=== PATIENT | female | born 1985 | race Caucasian/White ===

== ENCOUNTER 2016-09-14 21:40 | Emergency (ER) | payer OTHER ==
[~2016-09-14] VITALS: Ht 172.7 cm; Wt 157.7 kg
[2016-09-14 21:46] VITALS: TEMP 36.7; Ht 172.7 cm; Wt 157.7 kg
[2016-09-14] MEDS ORDERED: SODIUM CHLORIDE 0.9% 1000ML 1,000 ML IV STA (22:00)
[2016-09-14] MEDS ORDERED: VNTHFA/IN INH (22:03)
[2016-09-14 22:12] LABS: URINE APPEARANCE CLOUDY (CLEAR); URINE COLOR DK YELLOW; URINE EPITHELIAL CELL AUTO >30 /lpf (0-5); URINE NITRITE NEG (NEG); URINE PH 5.5 (4.5-7.5); URINE SPECIFIC GRAVITY 1.029 (1.000-1.030); UROBILINOGEN NEG (NEG); ZZUR CULT IF INDIC CLEAN CATCH YES
[2016-09-14 22:14] LABS: MANUAL MICROSCOPIC REQUIRED? NO; REVIEW REQ? YES
[2016-09-14 22:16] LABS: URINE BILIRUBIN NEG (NEG)
[2016-09-14 22:28] LABS: BASO % 0.1 %; BASO ABS # 0.02 K/uL (0-0.2); COMPLETE YES; EOS % 1.2 %; HEMATOCRIT 42.3 % (37-47); IG% 0.3 %; LYMPH % 26.5 %; LYMPH ABS # 3.61 K/uL (1.2-3.4); MEAN CELL VOLUME 86.9 fL (80-100); MEAN CORPUSCULAR HEMOGLOBIN 29.4 pg (25-34); MEAN CORPUSCULAR HGB CONC 33.8 g/dl (32-36); MEAN PLATELET VOLUME 9.7 fL (7.4-10.4); MONO % 4.6 %; NEUT % 67.3 %; PLATELET COUNT 222 K/uL (130-400); RED BLOOD COUNT 4.87 M/uL (4.2-5.4)
--- NOTE | 2016-09-14 22:46 | EMERGENCY ROOM VISIT NOTE ---
History First contact with patient: 21:49 Chief Complaint: ABDOMINAL PAIN Stated Complaint: STOMACH PAIN Nursing Triage Summary: pt c/o abd pain x 4 days. reports + preg test at home History of Present Illness The patient is a 31 year old female who presents to the Emergency Room with complaints of abdominal pain. The patient states that for the past 4 days, she has had pain throughout her abdomen with radiation up to the ribs. She took a home test and states it was positive. She reports that her last menstrual period was at the end of June. She states the pain as a tearing sensation and is intermittent. She rates the discomfort an 8/10 and states the pain is worse with eating. She reports it is also worse in the morning. She has associated nausea and has had a few episodes of vomiting. The patient states she has had 2 prior pregnancies without complications. She denies any urinary symptoms, vaginal bleeding, vaginal discharge, chest pain, shortness of breath or changes in bowel movements. Review of Systems A complete 10 point review of systems was reviewed with the patient with pertinent positives and negatives as per history of present illness. All else were negative. Social History Smoking Status: Current Every Day Smoker Current/Historical Medications Scheduled PRN Albuterol Hfa (Ventolin Hfa), 2-4 PUFFS INH Q6H PRN for Shortness of Breath Allergies Coded Allergies: Aspirin (Verified Allergy, Severe, "TIGHTENS CHEST"-ASTHMA ATTACK, 09/14/16 ) Physical Exam Vital Signs Date Time Temp Pulse Resp B/P (MAP) Pulse Ox O2 Delivery O2 Flow Rate FiO2 09/15/16 00:10 87 18 111/57 99 Room Air 09/14/16 23:06 95 18 106/77 99 Room Air 09/14/16 22:59 99 16 89/51 97 Room Air 09/14/16 21:46 36.7 100 18 136/89 97 Room Air Physical Exam VITALS: Vitals are noted on the nurse's note and reviewed by myself. Vital signs stable. GENERAL: This is a 31-year-old female, in no acute distress, nondiaphoretic, well-developed well-nourished. SKIN: Capillary reflex less than 2 seconds. HEENT: Normocephalic. PERRLA. EOMI. Mucous membranes moist. HEART: Regular rate and rhythm without murmurs gallops or rubs. LUNGS: Clear to auscultation bilaterally without wheezes, rales or rhonchi. ABDOMEN: Positive bowel sounds x 4. Soft, mild tenderness to palpation across the lower abdomen. No guarding or rebound tenderness. NEURO: Patient was alert and oriented to person place and time. Medical Decision & Procedures ER Provider Diagnostic Interpretation: US OB/ENDOVA mm cystic uterine lesion could reflect a very early gestational sac. Without visualizing a yolk sac or pole, cannot fully exclude ectopic . Recommend clinical follow-up. Unremarkable adnexal contents. Radiologist: Bhanu De Jesus M.D. Laboratory Results 09/14/16 22:15 Red Blood Count 4.87, Mean Corpuscular Volume 86.9, Mean Corpuscular Hemoglobin 29.4, Mean Corpuscular Hemoglobin Concent 33.8, Mean Platelet Volume 9.7, Neutrophils (%) (Auto) 67.3, Lymphocytes (%) (Auto) 26.5, Monocytes (%) (Auto) 4.6, Eosinophils (%) (Auto) 1.2, Basophils (%) (Auto) 0.1, Neutrophils # (Auto) 9.15, Lymphocytes # (Auto) 3.61, Monocytes # (Auto) 0.62, Eosinophils # (Auto) 0.16, Basophils # (Auto) 0.02 09/14/16 22:15 Test 09/14/16 21:55 09/14/16 22:15 Urine Color DK YELLOW Urine Appearance CLOUDY (CLEAR) Urine pH 5.5 (4.5-7.5) Urine Specific [place] 1.029 (1.000-1.030) Urine Protein NEG (NEG) Urine Glucose (UA) NEG (NEG) Urine Ketones TRACE (NEG) Urine Occult Blood NEG (NEG) Urine Nitrite NEG (NEG) Urine Bilirubin NEG (NEG) Urine Urobilinogen NEG (NEG) Urine Leukocyte Esterase SMALL (NEG) Urine WBC (Auto) >30 /hpf (0-5) Urine RBC (Auto) 5-10 /hpf (0-4) Urine Hyaline Casts (Auto) 0 /lpf (0-5) Urine Epithelial Cells (Auto) >30 /lpf (0-5) Urine Bacteria (Auto) 2+ (NEG) Urine Pathogenic Casts /lpf (0) White Blood Count 13.60 K/uL (4.8-10.8) Red Blood Count 4.87 M/uL (4.2-5.4) Hemoglobin 14.3 g/dL (12.0-16.0) Hematocrit 42.3 % (37-47) Mean Corpuscular Volume 86.9 fL (80-100) Mean Corpuscular Hemoglobin 29.4 pg (25-34) Mean Corpuscular Hemoglobin Concent 33.8 g/dl (32-36) Platelet Count 222 K/uL (130-400) Mean Platelet Volume 9.7 fL (7.4-10.4) Neutrophils (%) (Auto) 67.3 % Lymphocytes (%) (Auto) 26.5 % Monocytes (%) (Auto) 4.6 % Eosinophils (%) (Auto) 1.2 % Basophils (%) (Auto) 0.1 % Neutrophils # (Auto) 9.15 K/uL (1.4-6.5) Lymphocytes # (Auto) 3.61 K/uL (1.2-3.4) Monocytes # (Auto) 0.62 K/uL (0.11-0.59) Eosinophils # (Auto) 0.16 K/uL (0-0.5) Basophils # (Auto) 0.02 K/uL (0-0.2) RDW Standard Deviation 41.3 fL (36.4-46.3) RDW Coefficient of Variation 13.0 % (11.5-14.5) Immature Granulocyte % (Auto) 0.3 % Immature Granulocyte # (Auto) 0.04 K/uL (0.00-0.02) Anion Gap 8.0 mmol/L (3-11) Est Creatinine Clear Calc Drug Dose 178.0 ml/min Estimated GFR () 126.0 Estimated GFR (Non- 108.7 BUN/Creatinine Ratio 13.3 (10-20) Calcium Level 8.9 mg/dl (8.5-10.1) Total Bilirubin 0.5 mg/dl (0.2-1) Aspartate Amino Transf (AST/SGOT) 21 U/L (15-37) Alanine Aminotransferase (ALT/SGPT) 32 U/L (12-78) Alkaline Phosphatase 73 U/L (45-117) Total Protein 7.1 gm/dl (6.4-8.2) Albumin 3.3 gm/dl (3.4-5.0) Globulin 3.8 gm/dl (2.5-4.0) Albumin/Globulin Ratio 0.9 (0.9-2) Lipase 155 U/L (73-393) Human Chorionic Gonadotropin, Quant 1249 mIU/mL Medications Administered Medications (Trade) Dose Ordered Sig/Shonda Route Start Time Stop Time Status Last Admin Dose Admin Sodium Chloride 1,000 ml @ 999 mls/hr Q1H1M STAT IV 09/14/16 22:00 09/14/16 23:00 DC 09/14/16 22:15 999 MLS/HR Medical Decision Differential diagnosis includes intrauterine , spontaneous , ectopic , ovarian cyst, ovarian torsion, urinary tract infection, among others. The patient is a 31-year-old female who presents today complaining of lower abdominal pain in the setting of a positive home test. Labs revealed a leukocytosis most likely due to . Urinalysis was suggestive of contamination vs infection and will be sent for culture. Beta hCG was found to be 1249. ultrasound showed what may be an early gestational sac, however ectopic could not be excluded. This may represent a very early and ectopic or spontaneous . The patient has no significant tenderness on exam. I am not highly suspicious of ectopic . However, the patient will need 48-hour follow- up for repeat beta hCG and possibly an additional ultrasound. She may follow- up with her primary care provider or DIRECTOR OF CRITICAL CARE for this, or may return here if they are unable to see her. She was instructed to return sooner if she has worsening pain or any other new/concerning symptoms. The patient's case was reviewed with Dr. Wilhelm, ED attending physician, who agreed with my assessment and treatment plan. Based on the patient's presentation and work up, I feel the patient is stable for outpatient treatment. The patient was educated to return to the emergency department for any worsening of their current condition or new/concerning symptoms. She will follow up with in 48 hours for repeat testing. Medication reconciliation: I attest that I have personally reviewed the patient 's current medication list. Blood pressure screening: Patient was found to have normal blood pressure on screening and does not require follow-up. Impression Primary Impression: Abdominal pain during in first trimester Departure Information Dispostion Home / Self-Care Condition GOOD Referrals No Doctor, Assigned (PCP) Patient Instructions My [facility] Additional Instructions Tylenol as needed for pain. You should start taking a vitamin. You need a follow-up in about 48 hours for a repeat hormone level and possibly an ultrasound. You may go to your primary care provider or DIRECTOR OF CRITICAL CARE for this. If you're not able to see them, you may return here for testing. Return to the emergency department sooner for worsening pain, vomiting, fever, or any other new/concerning symptoms.
[2016-09-14 22:52] LABS: BUN/CREATININE RATIO 13.3 (10-20); CALCIUM 8.9 mg/dl (8.5-10.1); CREATININE 0.74 mg/dl (0.60-1.20); POTASSIUM 3.3 mmol/L (3.5-5.1)
[2016-09-14 22:54] LABS: ALB/GLOB RATIO 0.9 (0.9-2)
[2016-09-15 00:10] VITALS: BP 111/57; PULSE 87; O2SAT 99
--- NOTE | 2016-09-15 05:57 | DIAGNOSTIC IMAGING REPORT ---
Limited ultrasound LIMITED (US) CLINICAL HISTORY: positive test, lower abd pain pain TECHNIQUE: Ultrasound COMPARISON STUDY: None FINDINGS: 5 mm cystic central uterine process. Possibility of an early intrauterine gestational sac is not excluded. The ovaries do not appear to be enlarged. Vascular flow is confirmed. IMPRESSION: 5 mm nonspecific cystic process central uterine canal. No evidence for pole. Diagnostic considerations include early intrauterine , versus nonvisualized ectopic . Close clinical and laboratory follow-up is suggested. Repeat ultrasound is suggested to confirm or exclude viability. Electronically signed by: Joseph Boggs M.D. 09/15/2016 5:56 AM Dictated Date/Time: 09/15/2016 5:54 AM
== END 2016-09-15 00:34 | disposition home or self-care (01) ==
LOC: C.EDB 21:43 → C.EDC 09-15 00:34
DX: O99.89 Other specified diseases and conditions complicating pregnancy, childbirth and the puerperium (principal); O99.330 Smoking (tobacco) complicating pregnancy, unspecified trimester; F17.200 Nicotine dependence, unspecified, uncomplicated

== ENCOUNTER 2016-09-30 22:02 | Emergency (ER) | payer OTHER ==
[~2016-09-30] VITALS: Ht 172.7 cm; Wt 155.6 kg
[~2016-09-30 22:02] MED LIST: VNTHFA/IN INH
[2016-09-30 22:10] VITALS: TEMP 36.7; Ht 172.7 cm; Wt 155.6 kg
[2016-09-30 23:34] LABS: BASO % 0.1 %; BASO ABS # 0.02 K/uL (0-0.2); COMPLETE YES; EOS % 0.5 %; HEMATOCRIT 40.6 % (37-47); IG% 0.2 %; LYMPH % 21.5 %; LYMPH ABS # 3.23 K/uL (1.2-3.4); MEAN CORPUSCULAR HEMOGLOBIN 29.4 pg (25-34); MEAN CORPUSCULAR HGB CONC 34.2 g/dl (32-36); MEAN PLATELET VOLUME 9.7 fL (7.4-10.4); MONO % 3.3 %; NEUT % 74.4 %; PLATELET COUNT 257 K/uL (130-400); RED BLOOD COUNT 4.72 M/uL (4.2-5.4); WHITE BLOOD COUNT 15.02 K/uL (4.8-10.8)
[2016-09-30 23:44] LABS: BUN/CREATININE RATIO 12.8 (10-20); CALCIUM 8.8 mg/dl (8.5-10.1); CREATININE 0.67 mg/dl (0.60-1.20); POTASSIUM 3.7 mmol/L (3.5-5.1)
[2016-09-30] MEDS ORDERED: ACETAMINOPHEN 325 MG TAB PO STA (23:55)
[2016-09-30 23:59] LABS: URINE APPEARANCE CLOUDY (CLEAR); URINE BILIRUBIN NEG (NEG); URINE COLOR DK YELLOW; URINE EPITHELIAL CELL AUTO >30 /lpf (0-5); URINE NITRITE NEG (NEG); UROBILINOGEN NEG (NEG); ZZUR CULT IF INDIC CLEAN CATCH YES
[2016-10-01 00:06] LABS: MANUAL MICROSCOPIC REQUIRED? NO; REVIEW REQ? YES
[2016-10-01] MEDS ORDERED: CEPHALEXIN MONOHYDRATE 250 MG CAP PO ONE (02:15)
[2016-10-01] MEDS ORDERED: CEPH500C PO (02:19)
[2016-10-01 02:29] VITALS: BP 98/56; PULSE 78; O2SAT 99
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
== END 2016-10-01 02:30 | disposition home or self-care (01) ==
LOC: C.EDB 22:04 → C.EDC 10-01 02:30
DX: S39.81XA Other specified injuries of abdomen, initial encounter (principal); O9A.211 Injury, poisoning and certain other consequences of external causes complicating pregnancy, first trimester; Y04.2XXA Assault by strike against or bumped into by another person, initial encounter; Y92.89 Other specified places as the place of occurrence of the external cause; O23.91 Unspecified genitourinary tract infection in pregnancy, first trimester; Z3A.01 Less than 8 weeks gestation of pregnancy

== ENCOUNTER 2017-01-15 09:37 | Emergency (ER) | payer OTHER ==
[~2017-01-15] VITALS: Ht 172.7 cm; Wt 160.3 kg
[2017-01-15 09:41] VITALS: TEMP 36.4; Ht 172.7 cm; Wt 160.3 kg
[2017-01-15] MEDS ORDERED: PROMETHAZINE HCL INJ 25 MG/ML 1 ML VIAL IV STA (09:51)
[2017-01-15] MEDS ORDERED: SODIUM CHLORIDE 0.9% 1000ML 2,000 ML IV STA (09:51)
--- NOTE | 2017-01-15 09:55 | EMERGENCY ROOM VISIT NOTE ---
History Report prepared by Bharat: Joanie Dominguez Under the Supervision of: Dr. Darian Lopez M.D. First contact with patient: 09:45 Chief Complaint: GI ASSESSMENT Stated Complaint: LOWER RIGHT FRONT AND BACK PAIN /VOMITING Nursing Triage Summary: Pt states she has been vomiting with right sided abd pain and back pain. Started Saturday. Seen at [facility] yesterday. History of Present Illness The patient is a 31 year old female who presents to the Emergency Room with complaints of waxing and waning right sided abdominal pain that began five days ago. She currently rates her discomfort as an 8/10 in severity. The patient states that on Saturday she ate and states that she developed right sided back pain that radiated into her right abdomen and nausea. She states that she then began vomiting and experiencing diarrhea. The patient states that she had to leave work due to her symptoms. She states that she attributed her symptoms to food poisoning. The patient states that her symptoms her persisted all weekend. She states that she is nauseous constantly. The patient states that she vomits or has diarrhea each time she eats or drinks. She states that her pain is worsened with eating and drinking. The patient denies any history of a cholecystectomy or appendectomy, noting that her only abdominal surgery was previous sections. She denies ever having pain like this in the past. The patient states that she feels feverish, but is chilled. She denies any recent sick contacts. The patient denies any hematemesis, hematochezia, or urinary symptoms. Source of History: patient Onset: five days ago Position: abdomen (right sided) Symptom Intensity: 8/10 Timing: waxes/wanes Modifying Factors (Worsening): eating, drinking Associated Symptoms: + fevers, + chills, + nausea, + vomiting, + diarrhea, No hematochezia, No urinary symptoms Review of Systems See HPI for pertinent positives & negatives. A total of 10 systems reviewed and were otherwise negative. Past Medical & Surgical Medical Problems: (1) Family History Patient reports no known family medical history. Social History Smoking Status: Current Every Day Smoker Alcohol Use: none Drug Use: none Marital Status: in relationship Housing Status: lives with family Current/Historical Medications Scheduled Ondasetron Odt (Zofran Odt), 4 MG SL Q6H Pantoprazole (Protonix), 20 MG PO DAILY Scheduled PRN Albuterol Hfa (Ventolin Hfa), 2-4 PUFFS INH Q6H PRN for Shortness of Breath Oxycodone Ir (Roxicodone Ir), 1 TAB PO Q4H PRN for Pain Allergies Coded Allergies: Aspirin (Verified Allergy, Severe, "TIGHTENS CHEST"-ASTHMA ATTACK, ) Physical Exam Vital Signs Date Time Temp Pulse Resp B/P (MAP) Pulse Ox O2 Delivery O2 Flow Rate FiO2 01/15/17 12:37 82 18 123/64 97 01/15/17 11:18 80 18 101/56 98 Room Air 01/15/17 09:41 36.4 112 20 107/73 97 Room Air Physical Exam GENERAL: Patient is in no acute distress. HEENT: No acute trauma, normocephalic atraumatic, mucous membranes moist, no nasal congestion, no scleral icterus. NECK: No stridor, no adenopathy, no meningismus, trachea is midline. LUNGS: Clear to auscultation bilaterally, no wheeze, no rhonchi, breath sounds equal. HEART: Tachycardic with a regular rhythm, no murmurs. ABDOMEN: Soft, tender along entire right side, bowel sounds positive, no hernias , no peritonitis. BACK: Right flank discomfort with percussion EXTREMITIES: No cyanosis or edema, full range of motion of all the joints without pain or difficulty, no signs for acute trauma. NEUROLOGIC: Oriented x 3, no acute motor or sensory deficits, no focal weakness. SKIN: No rash, no jaundice, no diaphoresis. Medical Decision & Procedures ER Provider Diagnostic Interpretation: CT results as stated below per my review and radiologist interpretation: CT SCAN OF THE ABDOMEN AND PELVIS WITH IV CONTRAST CLINICAL HISTORY: Vomiting. Right-sided abdominal pain. COMPARISON STUDY: No priors. TECHNIQUE: Following the IV administration of 93 cc of Optiray 320, CT scan of the abdomen and pelvis is performed from the lung bases to the proximal femora. Images are reviewed in the axial, sagittal, and coronal planes. IV contrast was administered without complication. A dose lowering technique was utilized adhering to the principles of ALARA. The examination is degraded by large body habitus, and by streak artifact from the body wall abutting the CT gantry. CT DOSE: 1098.14 mGycm FINDINGS: Lung bases: The heart is normal in size and without pericardial effusion. Is a 3 mm pleural-based nodule at the left lung base seen on image #7 and a 4 mm pleural-based nodule at the right lung base seen on image #3. These are of doubtful significance in this age group. The lung bases are clear. Liver: The contrast-enhanced liver is enlarged, measuring 22.2 cm in length. The liver demonstrates diffusely diminished attenuation consistent with severe hepatic steatosis. There is no intrahepatic biliary ductal dilatation. The hepatic veins and portal veins are patent. Gallbladder: Unremarkable. Spleen: Spleen is enlarged, measuring 14 cm in length. Pancreas: Unremarkable. Adrenal glands: Unremarkable. Kidneys: The contrast enhanced kidneys are normal in size and without hydronephrosis. The kidneys enhance symmetrically. Abdominal vasculature: The abdominal aorta is normal in course and caliber. Bowel: The small bowel and colon are normal in course and caliber. The appendix is well-visualized and normal. Peritoneum: There is no intraperitoneal free air or abdominal ascites. There is a fat-containing umbilical hernia. Lymphadenopathy: None. Pelvic viscera: The bladder and uterus are normal as visualized. A 2.9 cm dominant follicle is noted in the right ovary. Skeletal structures: No lytic or blastic lesions are seen. Sclerotic change is noted in the sacroiliac joints. IMPRESSION: 1. There are no acute infectious or inflammatory findings in the abdomen or pelvis. 2. Hepatomegaly and severe hepatic steatosis. 3. Splenomegaly. Electronically signed by: Darian Rivero M.D. 01/15/2017 11:22 AM Dictated Date/Time: 01/15/2017 11:18 AM Laboratory Results 01/15/17 09:52 Red Blood Count 5.34, Mean Corpuscular Volume 86.9, Mean Corpuscular Hemoglobin 28.1, Mean Corpuscular Hemoglobin Concent 32.3, Mean Platelet Volume 10.4, Neutrophils (%) (Auto) 71.1, Lymphocytes (%) (Auto) 23.3, Monocytes (%) (Auto) 3.5, Eosinophils (%) (Auto) 1.5, Basophils (%) (Auto) 0.2, Neutrophils # (Auto) 8.06, Lymphocytes # (Auto) 2.64, Monocytes # (Auto) 0.40, Eosinophils # (Auto) 0.17, Basophils # (Auto) 0.02 10/17/17 09:52 Test 01/15/17 09:52 01/15/17 10:50 White Blood Count 11.33 K/uL (4.8-10.8) Red Blood Count 5.34 M/uL (4.2-5.4) Hemoglobin 15.0 g/dL (12.0-16.0) Hematocrit 46.4 % (37-47) Mean Corpuscular Volume 86.9 fL (80-100) Mean Corpuscular Hemoglobin 28.1 pg (25-34) Mean Corpuscular Hemoglobin Concent 32.3 g/dl (32-36) Platelet Count 232 K/uL (130-400) Mean Platelet Volume 10.4 fL (7.4-10.4) Neutrophils (%) (Auto) 71.1 % Lymphocytes (%) (Auto) 23.3 % Monocytes (%) (Auto) 3.5 % Eosinophils (%) (Auto) 1.5 % Basophils (%) (Auto) 0.2 % Neutrophils # (Auto) 8.06 K/uL (1.4-6.5) Lymphocytes # (Auto) 2.64 K/uL (1.2-3.4) Monocytes # (Auto) 0.40 K/uL (0.11-0.59) Eosinophils # (Auto) 0.17 K/uL (0-0.5) Basophils # (Auto) 0.02 K/uL (0-0.2) RDW Standard Deviation 40.7 fL (36.4-46.3) RDW Coefficient of Variation 12.7 % (11.5-14.5) Immature Granulocyte % (Auto) 0.4 % Immature Granulocyte # (Auto) 0.04 K/uL (0.00-0.02) Anion Gap 6.0 mmol/L (3-11) Est Creatinine Clear Calc Drug Dose 168.4 ml/min Estimated GFR () 116.4 Estimated GFR (Non- 100.5 BUN/Creatinine Ratio 14.4 (10-20) Calcium Level 9.1 mg/dl (8.5-10.1) Total Bilirubin 0.6 mg/dl (0.2-1) Aspartate Amino Transf (AST/SGOT) 20 U/L (15-37) Alanine Aminotransferase (ALT/SGPT) 27 U/L (12-78) Alkaline Phosphatase 102 U/L (45-117) Total Protein 8.0 gm/dl (6.4-8.2) Albumin 3.4 gm/dl (3.4-5.0) Globulin 4.6 gm/dl (2.5-4.0) Albumin/Globulin Ratio 0.7 (0.9-2) Lipase 154 U/L (73-393) Human Chorionic Gonadotropin, Qual NEG (NEG) Urine Color YELLOW Urine Appearance CLOUDY (CLEAR) Urine pH 8.0 (4.5-7.5) Urine Specific Ledbetter 1.024 (1.000-1.030) Urine Protein NEG (NEG) Urine Glucose (UA) NEG (NEG) Urine Ketones NEG (NEG) Urine Occult Blood NEG (NEG) Urine Nitrite NEG (NEG) Urine Bilirubin NEG (NEG) Urine Urobilinogen NEG (NEG) Urine Leukocyte Esterase SMALL (NEG) Urine WBC (Auto) 5-10 /hpf (0-5) Urine RBC (Auto) 5-10 /hpf (0-4) Urine Hyaline Casts (Auto) 1-5 /lpf (0-5) Urine Epithelial Cells (Auto) >30 /lpf (0-5) Urine Bacteria (Auto) 2+ (NEG) Laboratory results reviewed by me. Medications Administered Medications (Trade) Dose Ordered Sig/Shonda Route Start Time Stop Time Status Last Admin Dose Admin Sodium Chloride 2,000 ml @ 999 mls/hr Q2H1M STAT IV 01/15/17 09:51 01/15/17 11:51 DC 01/15/17 10:04 999 MLS/HR Promethazine HCl (Phenergan Inj) 12.5 mg NOW STAT IV 01/15/17 09:51 01/15/17 09:52 DC 01/15/17 10:05 12.5 MG Morphine Sulfate (MoRPHine SULFATE INJ) 4 mg Q30M PRN IV 01/15/17 10:00 01/29/17 09:59 01/15/17 10:05 4 MG Morphine Sulfate (MoRPHine SULFATE INJ) 4 mg NOW STAT IV 01/15/17 11:19 01/15/17 11:20 DC 01/15/17 11:36 4 MG Sodium Chloride 500 ml @ 999 mls/hr Q31M STAT IV 01/15/17 11:20 01/15/17 11:50 DC 01/15/17 11:36 999 MLS/HR Ranitidine HCl (zANTac IV) 50 mg NOW STAT IV 01/15/17 11:25 01/15/17 11:26 DC 01/15/17 11:36 50 MG Pantoprazole Sodium (Protonix Tab) 40 mg NOW STAT PO 01/15/17 11:25 01/15/17 11:26 DC 01/15/17 11:37 40 MG ED Course 0946: The patient was evaluated in room A3. A complete history and physical exam was performed. 0951: Ordered Phenergan Inj 12.5 mg IV, Sodium Chloride 2000 ml @ 999 mls/hr IV. 1000: Ordered Morphine Sulfate 4 mg IV. 1119: Ordered Morphine Sulfate 4 mg IV, Sodium Chloride 500 ml @ 999 mls/hr IV. 1125: Ordered Protonix Tab 40 mg PO, Zantac IV 50 mg IV. 1215: I reevaluated the patient and she is resting comfortably. I discussed the exam findings with her and I discussed the treatment plan. She verbalized complete understanding and agreement. She is ready to go home. Medical Decision The patient is a 31 year old female who presents to the ED with complaints of abdominal pain. Differential diagnoses considered include Appendicitis, diverticulitis, biliary colic, acute cholecystitis, pancreatitis, UTI, pyelonephritis, food borne illness, viral illness. There is a mild leukocytosis which could be consistent with infection or just her pain and vomiting. No concerning anemia. No significant electrolyte abnormality, kidney failure or hepatitis. There is no pancreatitis. Urinalysis shows contamination, no infection. Abdominal and pelvis CT shows a fatty liver, no acute infectious process, no evidence for any acute surgical process, no bowel obstruction. The patient presents with several days of symptoms. Her illness may be viral, this could be food borne. She did receive IV morphine, IV Phenergan and IV saline. She was given IV Zantac and oral Protonix. The patient is being discharged on Protonix, a few oxycodone for severe pain, Zofran for nausea, a bland diet and some rest. If things are worsening or not improving, she will return for reassessment. The true cause for her presentation is still unclear. [place] Drug Monitoring Program Search Results: patient reviewed within database, no issues identified Medication Reconcilliation Current Medication List: was personally reviewed by me Impression Primary Impression: Nausea vomiting and diarrhea Additional Impression: Right sided abdominal pain Scribe Attestation The scribe's documentation has been prepared under my direction and personally reviewed by me in its entirety. I confirm that the note above accurately reflects all work, treatment, procedures, and medical decision making performed by me. Departure Information Dispostion Home / Self-Care Prescriptions Pantoprazole (Protonix) 20 Mg Tab 20 MG PO DAILY, #30 TAB Prov: Darian Lopez M.D. 01/15/17 Oxycodone Ir (Roxicodone Ir) 5 Mg Tab 1 TAB PO Q4H Y for Pain, #6 TAB Prov: Darian Lopez M.D. 01/15/17 Ondasetron Odt (ZOFRAN ODT) 4 Mg Tab 4 MG SL Q6H for Nausea, #10 TAB Prov: Darian Lopez M.D. 01/15/17 Referrals No Doctor, Assigned (PCP) Forms HOME CARE DOCUMENTATION FORM, IMPORTANT VISIT INFORMATION, Work Instructions Patient Instructions My [facility] Additional Instructions protonix as directed zofran 1 tab every 6 hours for nausea tylenol for pain oxy ir 1 tab as needed for severe pain rest bland diet---crackers, soup, toast, gatorade return if worsening or have fever or if not improving Problem Qualifiers
[2017-01-15] MEDS ORDERED: MoRPHine SULFATE 4 MG/ML 1 ML CARP\\VIAL IV PRN (10:00)
[2017-01-15] MEDS ORDERED: OPTIRAY 320 IV PRN (10:00)
[2017-01-15 10:17] LABS: BASO % 0.2 %; BASO ABS # 0.02 K/uL (0-0.2); COMPLETE YES; EOS % 1.5 %; HEMATOCRIT 46.4 % (37-47); IG% 0.4 %; LYMPH % 23.3 %; LYMPH ABS # 2.64 K/uL (1.2-3.4); MEAN CELL VOLUME 86.9 fL (80-100); MEAN CORPUSCULAR HEMOGLOBIN 28.1 pg (25-34); MEAN CORPUSCULAR HGB CONC 32.3 g/dl (32-36); MEAN PLATELET VOLUME 10.4 fL (7.4-10.4); MONO % 3.5 %; NEUT % 71.1 %; PLATELET COUNT 232 K/uL (130-400); RED BLOOD COUNT 5.34 M/uL (4.2-5.4); WHITE BLOOD COUNT 11.33 K/uL (4.8-10.8)
[2017-01-15 10:36] LABS: BUN/CREATININE RATIO 14.4 (10-20); CALCIUM 9.1 mg/dl (8.5-10.1); CREATININE 0.79 mg/dl (0.60-1.20); POTASSIUM 3.7 mmol/L (3.5-5.1)
[2017-01-15 10:38] LABS: ALB/GLOB RATIO 0.7 (0.9-2)
[2017-01-15 10:45] LABS: PREG INTERNAL NEGATIVE QC NEG CLEAR BACKGROUND; PREG INTERNAL POSITIVE QC POS CONTROL LINE
[2017-01-15 11:10] LABS: URINE APPEARANCE CLOUDY (CLEAR); URINE BILIRUBIN NEG (NEG); URINE COLOR YELLOW; URINE EPITHELIAL CELL AUTO >30 /lpf (0-5); URINE NITRITE NEG (NEG); URINE SPECIFIC GRAVITY 1.024 (1.000-1.030); UROBILINOGEN NEG (NEG); ZZUR CULT IF INDIC CLEAN CATCH YES
[2017-01-15 11:12] LABS: MANUAL MICROSCOPIC REQUIRED? NO; REVIEW REQ? NO
[2017-01-15] MEDS ORDERED: MoRPHine SULFATE 4 MG/ML 1 ML CARP\\VIAL IV STA (11:19)
[2017-01-15] MEDS ORDERED: SODIUM CHLORIDE 0.9% 500ML 500 ML IV STA (11:20)
--- NOTE | 2017-01-15 11:23 | DIAGNOSTIC IMAGING REPORT ---
CT SCAN OF THE ABDOMEN AND PELVIS WITH IV CONTRAST CLINICAL HISTORY: Vomiting. Right-sided abdominal pain. COMPARISON STUDY: No priors. TECHNIQUE: Following the IV administration of 93 cc of Optiray 320, CT scan of the abdomen and pelvis is performed from the lung bases to the proximal femora. Images are reviewed in the axial, sagittal, and coronal planes. IV contrast was administered without complication. A dose lowering technique was utilized adhering to the principles of ALARA. The examination is degraded by large body habitus, and by streak artifact from the body wall abutting the CT gantry. CT DOSE: 1098.14 mGycm FINDINGS: Lung bases: The heart is normal in size and without pericardial effusion. Is a 3 mm pleural-based nodule at the left lung base seen on image #7 and a 4 mm pleural-based nodule at the right lung base seen on image #3. These are of doubtful significance in this age group. The lung bases are clear. Liver: The contrast-enhanced liver is enlarged, measuring 22.2 cm in length. The liver demonstrates diffusely diminished attenuation consistent with severe hepatic steatosis. There is no intrahepatic biliary ductal dilatation. The hepatic veins and portal veins are patent. Gallbladder: Unremarkable. Spleen: Spleen is enlarged, measuring 14 cm in length. Pancreas: Unremarkable. Adrenal glands: Unremarkable. Kidneys: The contrast enhanced kidneys are normal in size and without hydronephrosis. The kidneys enhance symmetrically. Abdominal vasculature: The abdominal aorta is normal in course and caliber. Bowel: The small bowel and colon are normal in course and caliber. The appendix is well-visualized and normal. Peritoneum: There is no intraperitoneal free air or abdominal ascites. There is a fat-containing umbilical hernia. Lymphadenopathy: None. Pelvic viscera: The bladder and uterus are normal as visualized. A 2.9 cm dominant follicle is noted in the right ovary. Skeletal structures: No lytic or blastic lesions are seen. Sclerotic change is noted in the sacroiliac joints. IMPRESSION: 1. There are no acute infectious or inflammatory findings in the abdomen or pelvis. 2. Hepatomegaly and severe hepatic steatosis. 3. Splenomegaly. Electronically signed by: Darian Rivero M.D. 01/15/2017 11:22 AM Dictated Date/Time: 01/15/2017 11:18 AM
[2017-01-15] MEDS ORDERED: PANTOprazole SOD 40 MG TAB PO STA (11:25)
[2017-01-15] MEDS ORDERED: RANITIDINE HCL 50 MG/100 ML D5W IV STA (11:25)
[2017-01-15] MEDS ORDERED: OXYC1TAB3 PO (12:26)
[2017-01-15] MEDS ORDERED: PRT/20 PO (12:26)
[2017-01-15] MEDS ORDERED: ONDA4TAB10 SL (12:26)
[2017-01-15 12:37] VITALS: BP 123/64; PULSE 82; O2SAT 97
== END 2017-01-15 12:37 | disposition home or self-care (01) ==
LOC: C.EDB 09:40 → C.EDA 12:37
DX: R11.2 Nausea with vomiting, unspecified (principal); R19.7 Diarrhea, unspecified; R10.9 Unspecified abdominal pain; F17.210 Nicotine dependence, cigarettes, uncomplicated

== ENCOUNTER 2017-01-17 11:12 | Emergency (ER) | payer OTHER ==
[~2017-01-17] VITALS: Ht 172.7 cm; Wt 159.0 kg
[~2017-01-17 11:12] MED LIST changes: +ONDA4TAB10 SL; +OXYC1TAB3 PO; +PRT/20 PO
[2017-01-17 11:17] VITALS: TEMP 37.2; Ht 172.7 cm; Wt 159.0 kg
[2017-01-17] MEDS ORDERED: HYDROmorphone INJ 1 MG/ML SYR IV STA ×2 (11:38→14:44)
[2017-01-17] MEDS ORDERED: ONDANSETRON INJ 2 MG/ML 2 ML VIAL IV STA (11:38)
--- NOTE | 2017-01-17 11:40 | EMERGENCY ROOM VISIT NOTE ---
History Report prepared by Bharat: Joanie Dominguez Under the Supervision of: Dr. Jass Parish M.D. First contact with patient: 11:30 Chief Complaint: ABDOMINAL PAIN Stated Complaint: FRONT/LWR BACK SIDE, BREATHING ISSUES History of Present Illness The patient is a 31 year old female who presents to the Emergency Room with complaints of worsening right lower abdominal pain that began several days ago. She currently rates her discomfort as a 9/10 in severity. The patient states that Saturday she was evaluated in the emergency department for similar symptoms. She states that upon discharge she was instructed to stick to clear liquids and crackers. The patient states that she was then began incorporating regular foods into her diet, noting that she ground up beef last evening. She states that she immediately began vomiting and experiencing diarrhea all night. The patient additionally reports a cold and chest pain. She states that her pain radiates into her back. The patient denies any rash. Source of History: patient Onset: several days ago Position: abdomen (RLQ) Symptom Intensity: 9/10 Timing: worsening Associated Symptoms: + chest pain, + nausea, + vomiting, + back pain, + diarrhea, No rash Review of Systems See HPI for pertinent positives & negatives. A total of 10 systems reviewed and were otherwise negative. Past Medical & Surgical Medical Problems: (1) Family History Patient reports no known family medical history. Social History Smoking Status: Current Every Day Smoker Alcohol Use: none Drug Use: none Marital Status: in relationship Housing Status: lives with family Current/Historical Medications Scheduled Doxycycline Monohydrate (Monodox), 100 MG PO BID Ondasetron Odt (Zofran Odt), 4 MG SL Q6H Scheduled PRN Albuterol Hfa (Ventolin Hfa), 2-4 PUFFS INH Q6H PRN for Shortness of Breath Oxycodone/Acetaminophen 5MG/325MG (Percocet 5MG/325MG), 1-2 TAB PO Q4H PRN for Pain Allergies Coded Allergies: Aspirin (Verified Allergy, Severe, "TIGHTENS CHEST"-ASTHMA ATTACK, ) Physical Exam Vital Signs Date Time Temp Pulse Resp B/P (MAP) Pulse Ox O2 Delivery O2 Flow Rate FiO2 01/17/17 15:30 90 20 121/77 94 01/17/17 14:48 97 20 106/85 93 Room Air 01/17/17 13:41 106 18 130/62 92 Room Air 01/17/17 12:25 97 01/17/17 12:23 93 Room Air 01/17/17 12:12 100 20 125/75 93 Room Air 01/17/17 11:17 37.2 118 20 157/91 95 Room Air Physical Exam GENERAL: Patient is a healthy-appearing well-nourished female HEAD: Normocephalic atraumatic EYES: Ocular movements intact pupils equal and react to light OROPHARYNX mucous membranes are moist no exudates present no erythema or edema present NECK: Supple no nuchal rigidity CHEST: Good equal expansion LUNGS: Clear and equal to auscultation CARDIAC: Normal S1 and S2 ABDOMEN: Soft, tenderness in the right lower quadrant, no guarding BACK: No CVA tenderness EXTREMITIES: No pain upon palpation normal muscle strength in all groups no clubbing cyanosis or edema NEURO: Patient is following commands and answering questions appropriately. Alert and oriented x3 Cranial Nerves 2-12 grossly intact Medical Decision & Procedures ER Provider Diagnostic Interpretation: Radiology results as stated below per my review and radiologist interpretation: CHEST ONE VIEW PORTABLE CLINICAL HISTORY: Atypical chest pain COMPARISON STUDY: No previous studies for comparison. FINDINGS: The cardiac and mediastinal contours are normal. There is no evidence of focal pulmonary consolidation. There is no evidence of failure. No pleural effusions are visualized.[ IMPRESSION: No active disease in the chest. Electronically signed by: Avelino Reardon M.D. 01/17/2017 12:24 PM Dictated Date/Time: 01/17/2017 12:24 PM Laboratory Results 01/17/17 11:55 Red Blood Count 5.08, Mean Corpuscular Volume 86.2, Mean Corpuscular Hemoglobin 29.3, Mean Corpuscular Hemoglobin Concent 34.0, Mean Platelet Volume 10.3, Neutrophils (%) (Auto) 90.6, Lymphocytes (%) (Auto) 6.5, Monocytes (%) (Auto) 2.0, Eosinophils (%) (Auto) 0.4, Basophils (%) (Auto) 0.1, Neutrophils # (Auto) 14.90, Lymphocytes # (Auto) 1.07, Monocytes # (Auto) 0.33, Eosinophils # (Auto) 0.07, Basophils # (Auto) 0.02 01/17/17 11:55 Test 01/17/17 11:55 10/19/17 12:20 White Blood Count 16.45 K/uL (4.8-10.8) Red Blood Count 5.08 M/uL (4.2-5.4) Hemoglobin 14.9 g/dL (12.0-16.0) Hematocrit 43.8 % (37-47) Mean Corpuscular Volume 86.2 fL (80-100) Mean Corpuscular Hemoglobin 29.3 pg (25-34) Mean Corpuscular Hemoglobin Concent 34.0 g/dl (32-36) Platelet Count 202 K/uL (130-400) Mean Platelet Volume 10.3 fL (7.4-10.4) Neutrophils (%) (Auto) 90.6 % Lymphocytes (%) (Auto) 6.5 % Monocytes (%) (Auto) 2.0 % Eosinophils (%) (Auto) 0.4 % Basophils (%) (Auto) 0.1 % Neutrophils # (Auto) 14.90 K/uL (1.4-6.5) Lymphocytes # (Auto) 1.07 K/uL (1.2-3.4) Monocytes # (Auto) 0.33 K/uL (0.11-0.59) Eosinophils # (Auto) 0.07 K/uL (0-0.5) Basophils # (Auto) 0.02 K/uL (0-0.2) RDW Standard Deviation 40.5 fL (36.4-46.3) RDW Coefficient of Variation 12.7 % (11.5-14.5) Immature Granulocyte % (Auto) 0.4 % Immature Granulocyte # (Auto) 0.06 K/uL (0.00-0.02) Anion Gap 8.0 mmol/L (3-11) Est Creatinine Clear Calc Drug Dose 186.4 ml/min Estimated GFR () 132.5 Estimated GFR (Non- 114.3 BUN/Creatinine Ratio 15.4 (10-20) Calcium Level 8.9 mg/dl (8.5-10.1) Total Bilirubin 0.6 mg/dl (0.2-1) Direct Bilirubin 0.2 mg/dl (0-0.2) Aspartate Amino Transf (AST/SGOT) 20 U/L (15-37) Alanine Aminotransferase (ALT/SGPT) 26 U/L (12-78) Alkaline Phosphatase 87 U/L (45-117) Total Creatine Kinase 41 U/L (26-192) Creatine Kinase MB < 0.5 ng/ml (0.5-3.6) Creatine Kinase MB Ratio (0-3.0) Troponin I < 0.015 ng/ml (0-0.045) Total Protein 7.8 gm/dl (6.4-8.2) Albumin 3.5 gm/dl (3.4-5.0) Lipase 116 U/L (73-393) Urine Color YELLOW Urine Appearance CLEAR (CLEAR) Urine pH 8.5 (4.5-7.5) Urine Specific [place] 1.017 (1.000-1.030) Urine Protein NEG (NEG) Urine Glucose (UA) NEG (NEG) Urine Ketones TRACE (NEG) Urine Occult Blood NEG (NEG) Urine Nitrite NEG (NEG) Urine Bilirubin NEG (NEG) Urine Urobilinogen NEG (NEG) Urine Leukocyte Esterase SMALL (NEG) Urine WBC (Auto) 5-10 /hpf (0-5) Urine RBC (Auto) 0-4 /hpf (0-4) Urine Hyaline Casts (Auto) 1-5 /lpf (0-5) Urine Epithelial Cells (Auto) >30 /lpf (0-5) Urine Bacteria (Auto) 1+ (NEG) Labs reviewed by ED physician. Medications Administered Medications (Trade) Dose Ordered Sig/Shonda Route Start Time Stop Time Status Last Admin Dose Admin Hydromorphone HCl (Dilaudid Inj) 1 mg NOW STAT IV 01/17/17 11:38 01/17/17 11:43 DC 01/17/17 12:14 1 MG Ondansetron HCl (Zofran Inj) 4 mg NOW STAT IV 01/17/17 11:38 01/17/17 11:43 DC 01/17/17 12:14 4 MG Ceftriaxone Sodium (Rocephin Inj) 1 gm NOW STAT IV 01/17/17 12:22 01/17/17 12:23 DC 01/17/17 12:34 1 GM Trimethoprim/ Sulfamethoxazole (Septra Ds 800/ 160MG Tab) 1 tab NOW STAT PO 01/17/17 12:22 01/17/17 12:23 DC 01/17/17 12:34 1 TAB Promethazine HCl 25 mg/Sodium Chloride 51 ml @ 204 mls/hr NOW STAT IV 01/17/17 14:44 01/17/17 14:58 DC 01/17/17 14:59 204 MLS/HR Ketorolac Tromethamine (Toradol Inj) 30 mg NOW STAT IV 01/17/17 14:44 01/17/17 14:45 DC 01/17/17 14:58 30 MG Hydromorphone HCl (Dilaudid Inj) 1 mg NOW STAT IV 01/17/17 14:44 01/17/17 14:45 DC 01/17/17 14:59 1 MG Doxycycline Hyclate (Vibramycin Cap) 100 mg ONE ONCE PO 01/17/17 15:00 01/17/17 15:01 DC 01/17/17 15:17 100 MG ECG Indication: abdominal pain, chest pain Rate (beats per minute): 104 Rhythm: sinus tachycardia Findings: no acute ischemic change, no ectopy ED Course 1135: Past medical records reviewed. The patient was evaluated in room B6. A complete history and physical examination was performed. 1138: Ordered Zofran Inj 4 mg IV, Dilaudid Inj 1 mg IV. 1222: Ordered Trimethoprim/Sulfamethoxazole 1 tab PO, Rocephin Inj 1 gm IV. Medical Decision Differential diagnosis: Etiologies such as appendicitis, diverticulitis, PUD, biliary pathology, UTI, pancreatitis, obstruction, mesenteric ischemia, aortic pathology, infections, inflammatory bowel disease, renal colic, as well as others were entertained. This is a 31-year-old female who presents emergency Department with multiple complaints. The patient is complaining of chest pain as well as abdominal pain that radiates into her back. Patient is also complaining of nausea vomiting and diarrhea. She has a soft benign abdominal examination. Serial abdominal examinations were performed on the patient in the emergency department and at no time did the patient exhibit a surgical abdomen. I will note on the patient' s last visit that she had a CAT scan of the abdomen and pelvis and the appendix was normal. In addition the patient has a normal test. Based on these findings and using shared medical decision-making I felt we should image the right ovarian follicle. Ultrasound does reveal some free fluid in the pelvis and is quite possible that the patient has a ruptured ovarian follicle. In addition the patient has elevation in her d-dimer therefore she was sent for a CAT scan of the chest which was concerning for pneumonia and the left upper lobe. Because of this I will start the patient on Rocephin and continue her on doxycycline to treat both what appears to be a urinary tract infection as well as pneumonia. The patient was given an additional dose of pain medication including Dilaudid and Phenergan. At this point I do feel she is well enough to be discharged home however stressed the need for follow-up with gynecology for the ovarian cyst. Patient was in agreement with the treatment plan. Medication Reconcilliation Current Medication List: was personally reviewed by me Impression Primary Impression: Chest pain Additional Impressions: Acute gastroenteritis Ovarian cyst Scribe Attestation The scribe's documentation has been prepared under my direction and personally reviewed by me in its entirety. I confirm that the note above accurately reflects all work, treatment, procedures, and medical decision making performed by me. Departure Information Dispostion Home / Self-Care Prescriptions Ondasetron Odt (ZOFRAN ODT) 4 Mg Tab 4 MG SL Q6H for Nausea, #6 TAB Prov: Jass Parish MD 01/17/17 Oxycodone/Acetaminophen 5MG/325MG (PERCOCET 5MG/325MG) Tab 1-2 TAB PO Q4H Y for Pain, #14 TAB Prov: Jass Parish MD 01/17/17 Doxycycline Monohydrate (Monodox) 100 Mg Cap 100 MG PO BID for 10 Days, #20 CAP Prov: Jass Parish MD 01/17/17 Referrals No Doctor, Assigned (PCP) Patient Instructions My [facility] Problem Qualifiers Primary Impression: Chest pain Chest pain type: precordial pain Qualified Codes: R07.2 - Precordial pain Additional Impressions: Ovarian cyst Laterality: right Qualified Codes: N83.201 - Unspecified ovarian cyst, right side
[2017-01-17 12:10] LABS: BASO % 0.1 %; BASO ABS # 0.02 K/uL (0-0.2); COMPLETE YES; EOS % 0.4 %; HEMATOCRIT 43.8 % (37-47); IG% 0.4 %; LYMPH % 6.5 %; LYMPH ABS # 1.07 K/uL (1.2-3.4); MEAN CELL VOLUME 86.2 fL (80-100); MEAN CORPUSCULAR HEMOGLOBIN 29.3 pg (25-34); MEAN PLATELET VOLUME 10.3 fL (7.4-10.4); NEUT % 90.6 %; PLATELET COUNT 202 K/uL (130-400); RED BLOOD COUNT 5.08 M/uL (4.2-5.4); WHITE BLOOD COUNT 16.45 K/uL (4.8-10.8)
[2017-01-17] MEDS ORDERED: CEFTRIAXONE SOD INJ 1 GM ADDVIAL IV STA (12:22)
[2017-01-17] MEDS ORDERED: SULFAMETHOXAZOLE/TRIMETHOPRIM DS 800/160MG TAB PO STA (12:22)
[2017-01-17 12:23] VITALS: O2SAT 93
[2017-01-17 12:26] LABS: BLOOD UREA NITROGEN 11 mg/dl (7-18); BUN/CREATININE RATIO 15.4 (10-20); CALCIUM 8.9 mg/dl (8.5-10.1); CARBON DIOXIDE 24 mmol/L (21-32); CHLORIDE 105 mmol/L (98-107); CREATININE 0.71 mg/dl (0.60-1.20); GLUCOSE 112 mg/dl (70-99); POTASSIUM 3.7 mmol/L (3.5-5.1); SODIUM 137 mmol/L (136-145)
--- NOTE | 2017-01-17 12:26 | DIAGNOSTIC IMAGING REPORT ---
CHEST ONE VIEW PORTABLE CLINICAL HISTORY: Atypical chest pain COMPARISON STUDY: No previous studies for comparison. FINDINGS: The cardiac and mediastinal contours are normal. There is no evidence of focal pulmonary consolidation. There is no evidence of failure. No pleural effusions are visualized.[ IMPRESSION: No active disease in the chest. Electronically signed by: Avelino Reardon M.D. 01/17/2017 12:24 PM Dictated Date/Time: 01/17/2017 12:24 PM
[2017-01-17 12:32] LABS: ALKALINE PHOSPHATASE 87 U/L (45-117); ALT/SGPT 26 U/L (12-78); AST/SGOT 20 U/L (15-37)
[2017-01-17 12:37] LABS: URINE APPEARANCE CLEAR (CLEAR); URINE BILIRUBIN NEG (NEG); URINE COLOR YELLOW; URINE EPITHELIAL CELL AUTO >30 /lpf (0-5); URINE NITRITE NEG (NEG); URINE PH 8.5 (4.5-7.5); URINE SPECIFIC GRAVITY 1.017 (1.000-1.030); UROBILINOGEN NEG (NEG); ZZUR CULT IF INDIC CLEAN CATCH YES
[2017-01-17 12:38] LABS: MANUAL MICROSCOPIC REQUIRED? NO; REVIEW REQ? NO
[2017-01-17] MEDS ORDERED: OPTIRAY 320 IV PRN (13:30)
--- NOTE | 2017-01-17 14:42 | DIAGNOSTIC IMAGING REPORT ---
ULTRASOUND OF THE PELVIS CLINICAL HISTORY: Right pelvic pain. COMPARISON STUDY: Pelvic CT dated 01/15/2017. TECHNIQUE: Real-time, grayscale, and color flow sonography of the pelvis is performed both transabdominally and endovaginally. Images are reviewed in the transverse and longitudinal planes. FINDINGS: Uterus: The uterus is normal in size and echotexture, measuring 8.1 x 4.3 x 5.6 cm. A section scar is noted. Endometrium: The endometrium is normal in appearance, and the endometrial stripe is normal in thickness measuring up to 0.6 cm. Ovaries: The ovaries are normal in size and morphology. The right ovary measures 3.6 x 2.9 x 2.8 cm and the left ovary measures 3.3 x 1.8 x 1.8 cm. A dominant follicle in the right ovary measures 2.9 cm. Normal Doppler waveforms are shown within both ovaries. Pelvis: There is trace free fluid in the cul-de-sac, likely within physiologic limits. No concerning adnexal lesion is seen. IMPRESSION: Unremarkable sonographic assessment of the pelvis. Electronically signed by: Darian Rivero M.D. 01/17/2017 2:41 PM Dictated Date/Time: 01/17/2017 2:37 PM
[2017-01-17] MEDS ORDERED: KETOROLAC TROMETHAMINE 30 MG/ML VIAL IV STA (14:44)
[2017-01-17] MEDS ORDERED: PROMETHAZINE HCL INJ 25 MG in SODIUM CHLORIDE 0.9% 50ML 50 ML IV STA (14:44)
--- NOTE | 2017-01-17 14:45 | DIAGNOSTIC IMAGING REPORT ---
EXAMINATION: RENAL ULTRASOUND CLINICAL HISTORY: Right flank pain COMPARISON STUDY: CT scan dated 01/15/2017 FINDINGS: The right kidney measures 11.9 cm. The left kidney measures 12.0 cm. There is no evidence of hydronephrosis. There are no renal masses. No bladder abnormalities are visualized. Bilateral ureteral jets were visualized. IMPRESSION : Normal renal ultrasound Electronically signed by: Avelino Reardon M.D. 01/17/2017 2:44 PM Dictated Date/Time: 01/17/2017 2:40 PM
--- NOTE | 2017-01-17 14:54 | DIAGNOSTIC IMAGING REPORT ---
CT ANGIOGRAM OF THE CHEST CLINICAL HISTORY: Right flank and chest pain. Shortness of breath. POSSIBLE PULMONARY EMBOLISM COMPARISON STUDY: Chest x-ray dated 01/17/2017 TECHNIQUE: Following the IV administration of 119 mL of [id number]-[id number], CT angiogram of the thorax was performed from the thoracic inlet to the lung bases utilizing the pulmonary embolus protocol. Images are reviewed in the axial, sagittal, and coronal planes. IV contrast was administered without complication. MIP imaging was performed. A dose lowering technique was utilized adhering to the principles of ALARA. CT DOSE: 585.28 mGycm FINDINGS: No pathologically enlarged axillary mediastinal or hilar lymph nodes were visualized. There was no evidence of thoracic aortic dilatation. The examination is somewhat limited from a technical standpoint due to the patient's large body habitus. There are no pulmonary artery filling defects to indicate acute pulmonary emboli. There is suboptimal visualization of the peripheral branches. Correlation with serial leg ultrasonography could be obtained in follow-up if there is a strong clinical suspicion over the presence of pulmonary emboli. No pleural effusions are visualized. Evaluation the lung parenchyma is limited due to respiratory motion artifact. There is no lobar consolidation. There is a groundglass opacity within the left apex. A nonspecific, given the patient's age this is likely infectious/inflammatory. IMPRESSION: 1. Technically limited study secondary to respiratory motion artifact and patient's large body habitus. 2. No pulmonary emboli identified. Suboptimal evaluation of peripheral branches. 3. Left upper lobe groundglass opacities, likely infectious/inflammatory. Electronically signed by: Avelino Reardon M.D. 01/17/2017 2:53 PM Dictated Date/Time: 01/17/2017 2:44 PM
[2017-01-17] MEDS ORDERED: DOXYCYCLINE HYCLATE 100 MG CAP PO ONE (15:00)
[2017-01-17] MEDS ORDERED: ONDA4TAB10 SL (15:14)
[2017-01-17] MEDS ORDERED: DOXY100C76 PO (15:14)
[2017-01-17] MEDS ORDERED: OXYC-57 PO (15:14)
[2017-01-17 15:30] VITALS: BP 121/77; PULSE 90; O2SAT 94
[2017-01-18 09:39] LABS: ISTAT CREATININE 0.6 mg/dl (0.6-1.3); ISTAT HEMOGLOBIN 15.6 g/dl (12.0-16.0); ISTAT IONIZED CALCIUM 1.13 mmol/l (1.12-1.32)
== END 2017-01-17 15:34 | disposition home or self-care (01) ==
LOC: C.EDB 11:14
DX: K52.9 Noninfective gastroenteritis and colitis, unspecified (principal); N83.201 Unspecified ovarian cyst, right side; R07.2 Precordial pain; F17.210 Nicotine dependence, cigarettes, uncomplicated; Z79.899 Other long term (current) drug therapy

== ENCOUNTER 2017-01-22 11:32 | Emergency (ER) | payer OTHER ==
[~2017-01-22] VITALS: Ht 172.7 cm; Wt 158.7 kg
[~2017-01-22 11:32] MED LIST changes: +DOXY100C76 PO; +OXYC-57 PO; -OXYC1TAB3 PO; -PRT/20 PO
[2017-01-22 11:41] VITALS: TEMP 36.7; Ht 172.7 cm; Wt 158.7 kg
[2017-01-22] MEDS ORDERED: PRED10TA PO (12:19)
[2017-01-22] MEDS ORDERED: METHYLPREDNISOLONE 125 MG VIAL IV STA (12:24)
[2017-01-22 13:13] LABS: HEMATOCRIT 42.2 % (37-47); MEAN CELL VOLUME 85.8 fL (80-100); MEAN CORPUSCULAR HEMOGLOBIN 28.9 pg (25-34); MEAN CORPUSCULAR HGB CONC 33.6 g/dl (32-36); MEAN PLATELET VOLUME 10.2 fL (7.4-10.4); PLATELET COUNT 298 K/uL (130-400); RED BLOOD COUNT 4.92 M/uL (4.2-5.4); WHITE BLOOD COUNT 21.15 K/uL (4.8-10.8)
--- NOTE | 2017-01-22 13:19 | DIAGNOSTIC IMAGING REPORT ---
CHEST 2 VIEWS ROUTINE CLINICAL HISTORY: wheezing, dyspnea COMPARISON STUDY: 01/17/2017 FINDINGS: The cardiac and mediastinal contours are normal. There is no evidence of focal pulmonary consolidation. There is no evidence of failure. No pleural effusions are visualized.[ IMPRESSION: No active disease in the chest. Electronically signed by: Avelino Reardon M.D. 01/22/2017 1:18 PM Dictated Date/Time: 01/22/2017 1:18 PM
[2017-01-22 13:36] LABS: BUN/CREATININE RATIO 19.3 (10-20); CALCIUM 8.8 mg/dl (8.5-10.1); CREATININE 0.71 mg/dl (0.60-1.20)
[2017-01-22] MEDS ORDERED: ADVIN50/60 INH (14:03)
[2017-01-22] MEDS ORDERED: MONT1TAB3 PO (14:03)
--- NOTE | 2017-01-22 14:12 | EMERGENCY ROOM VISIT NOTE ---
History First contact with patient: 12:01 Chief Complaint: SHORTNESS OF BREATH Stated Complaint: BREATHING DIFFICULTY Nursing Triage Summary: Seen here and diagnosed with pneumonia. Not feeling any better and having increased SOB. Patient went to meets where she was given 0.5 of Epi, 125 IM solu medrol and two duoneb tx. Patient presents ALS at this time stating she is SOB. O2 sat on presentation 98-100% on RA. Patient breathing rapidly and instructed to slow breathing. Patient less anxsious and appears more comfortable once breathing slowed. History of Present Illness The patient is a 31 year old female who presents to the Emergency Room with complaints of wheezing and dyspnea since . She states she has been seen here in the emergency department several times over the past week complaining of pains in her side, chest pain, and abdominal pain. She states she was diagnosed last with pneumonia, and upon review of her CT scan of her chest, there were patchy, groundglass opacities in the left apex. The patient was started on doxycycline due to a urinary tract infection as well as possible pneumonia. She states since , she has been worsening with her anxiety and difficulty breathing. She states she has been taking 4-6 puffs of albuterol every hour, and understands that this is too much, however she continues to do it. Urgent care prior to arrival here, and was given Solu- Medrol IM, 2 DuoNeb treatments, and epinephrine. She presents via EMS at this time complaining of significant shortness of breath, wheezing, chest pain and pressure, palpitations, and extreme anxiety. The patient states her symptoms worsened today while at work, and she had to leave early. In addition to doxycycline, the patient has also been on prednisone for the past few days. She does report a history of asthma, however has not seen a primary care provider or anybody to discuss or manage her asthma for several months, as her previous PCP . The patient admits to diarrhea, vomiting, rhinorrhea, but denies any other upper respiratory infection symptoms, abdominal pain, constipation, nausea, chest pressure, or other concerning symptoms. She has continued to smoke cigarettes daily even despite being sick. Review of Systems A complete 10 point review of systems was reviewed with the patient with pertinent positives and negatives as per history of present illness. All else were negative. Past Medical/Surgical History Medical Problems: (1) Family History Patient reports no known family medical history. Social History Smoking Status: Current Every Day Smoker Smokeless Tobacco Use: No Alcohol Use: none Drug Use: none Marital Status: single, in relationship Housing Status: lives with family Occupation Status: employed Current/Historical Medications Scheduled Doxycycline Monohydrate (Monodox), 100 MG PO BID Fluticasone Prop/Salmeterol (Advair Diskus 500/50 60 Dose), 1 PUFF INH BID Montelukast Sodium (Singulair), 10 MG PO QD Ondasetron Odt (Zofran Odt), 4 MG SL Q6H Scheduled PRN Albuterol Hfa (Ventolin Hfa), 2-4 PUFFS INH Q6H PRN for Shortness of Breath Miscellaneous Medications Prednisone (Prednisone), 10 MG PO Allergies Aspirin Physical Exam Vital Signs Date Time Temp Pulse Resp B/P (MAP) Pulse Ox O2 Delivery O2 Flow Rate FiO2 01/22/17 14:41 84 18 118/89 96 Room Air 01/22/17 13:30 80 14 122/71 95 Room Air 01/22/17 11:45 71 01/22/17 11:41 98 Room Air 01/22/17 11:41 36.7 75 13 121/81 98 Room Air Physical Exam VITALS: Vitals are noted on the nurse's note and reviewed by myself. Vital signs stable. GENERAL: This is a 31-year-old obese white female, in no acute distress, nondiaphoretic, well-developed well-nourished. SKIN: The skin was without rashes, erythema, edema, or bruising. There is no tenting of the skin. Capillary reflex less than 2 seconds. HEAD: Normocephalic atraumatic. EARS: External auditory canals clear, tympanic membranes pearly liang without erythema or effusion bilaterally. EYES: Pupils equal round and reactive to light and accommodation. Conjunctivae without injection, sclerae without icterus. Extraocular movements intact. NOSE: Patent, turbinates without inflammation or discharge. No sinus tenderness. MOUTH: Mucous membranes moist. Tonsils are not enlarged. Pharynx without erythema or exudate. Uvula midline. Airway patent. Tongue does not deviate. NECK: Supple without nuchal rigidity. No lymphadenopathy. No thyromegaly. Cervical spine is nontender. No JVD. HEART: Regular rate and rhythm without murmurs gallops or rubs. LUNGS: Wheezes noted throughout the lungs, and all lung harrell. These are expiratory in nature, and mild to moderate in severity. No dullness to percussion. No retractions or accessory muscle use. ABDOMEN: Positive bowel sounds x 4. Normal tympanic percussion. Soft, nontender, without masses or organomegaly. Loco sign negative. No guarding or rebound tenderness. MUSCULOSKELETAL: No muscle atrophy, erythema, or edema noted. Full range of motion without joint tenderness in all extremities. No tenderness to palpation. Normal gait. Strength 5/5 throughout. NEURO: Patient was alert and oriented to person place and time. Normal sensation to light and sharp touch. Deep tendon reflexes 2+ throughout. No focal neurological deficits. Medical Decision & Procedures ER Provider Diagnostic Interpretation: CXR: CHEST 2 VIEWS ROUTINE CLINICAL HISTORY: wheezing, dyspnea COMPARISON STUDY: 01/17/2017 FINDINGS: The cardiac and mediastinal contours are normal. There is no evidence of focal pulmonary consolidation. There is no evidence of failure. No pleural effusions are visualized.[ IMPRESSION: No active disease in the chest. Electronically signed by: Avelino Reardon M.D. 01/22/2017 1:18 PM Dictated Date/Time: 01/22/2017 1:18 PM LABS: CBC showed leukocytosis of 21,000. Otherwise, without anemia, thrombocytopenia. PRP did show hypomagnesemia at 3.0. Otherwise, electrolytes and renal function were without abnormality. Laboratory Results 01/22/17 12:30 Red Blood Count 4.92, Mean Corpuscular Volume 85.8, Mean Corpuscular Hemoglobin 28.9, Mean Corpuscular Hemoglobin Concent 33.6, Mean Platelet Volume 10.2, Neutrophils (%) (Auto) 70.2, Lymphocytes (%) (Auto) 24.8, Monocytes (%) (Auto) 3.4, Eosinophils (%) (Auto) 0.5, Basophils (%) (Auto) 0.2, Neutrophils # (Auto) 14.84, Lymphocytes # (Auto) 5.24, Monocytes # (Auto) 0.72, Eosinophils # (Auto) 0.11, Basophils # (Auto) 0.05 01/22/17 12:30 Test 01/22/17 12:30 01/22/17 12:33 White Blood Count 21.15 K/uL (4.8-10.8) Red Blood Count 4.92 M/uL (4.2-5.4) Hemoglobin 14.2 g/dL (12.0-16.0) Hematocrit 42.2 % (37-47) Mean Corpuscular Volume 85.8 fL (80-100) Mean Corpuscular Hemoglobin 28.9 pg (25-34) Mean Corpuscular Hemoglobin Concent 33.6 g/dl (32-36) Platelet Count 298 K/uL (130-400) Mean Platelet Volume 10.2 fL (7.4-10.4) Neutrophils (%) (Auto) 70.2 % Lymphocytes (%) (Auto) 24.8 % Monocytes (%) (Auto) 3.4 % Eosinophils (%) (Auto) 0.5 % Basophils (%) (Auto) 0.2 % Neutrophils # (Auto) 14.84 K/uL (1.4-6.5) Lymphocytes # (Auto) 5.24 K/uL (1.2-3.4) Monocytes # (Auto) 0.72 K/uL (0.11-0.59) Eosinophils # (Auto) 0.11 K/uL (0-0.5) Basophils # (Auto) 0.05 K/uL (0-0.2) RDW Standard Deviation 40.8 fL (36.4-46.3) RDW Coefficient of Variation 13.0 % (11.5-14.5) Immature Granulocyte % (Auto) 0.9 % Immature Granulocyte # (Auto) 0.19 K/uL (0.00-0.02) Toxic Granulation 1+ Toxic Vacuolation 1+ Anion Gap 11.0 mmol/L (3-11) Est Creatinine Clear Calc Drug Dose 186.2 ml/min Estimated GFR () 132.5 Estimated GFR (Non- 114.3 BUN/Creatinine Ratio 19.3 (10-20) Calcium Level 8.8 mg/dl (8.5-10.1) Influenza Type A Antigen Neg for Influ A (NEG) Influenza Type B Antigen Neg for Influ B (NEG) Medications Administered Medications (Trade) Dose Ordered Sig/Shonda Route Start Time Stop Time Status Last Admin Dose Admin Methylprednisolone Sodium Succinate (Solu-Medrol IV) 125 mg NOW STAT IV 01/22/17 12:24 01/22/17 12:25 DC 01/22/17 12:45 125 MG Medical Decision This is a 31-year-old female who presented today complaining of worsening dyspnea, wheezing, and chest pain. She was recently diagnosed with possible pneumonia, however CT scan was not confirmatory for this. She has been overusing her inhaler, and has been using 4-6 puffs of albuterol every hour for the past few days. I do suspect that the overuse of albuterol is worsening her symptoms and anxiety, which is causing her to become more short of breath. When she presented here to the emergency department, she was extremely anxious, irritable, and complaining of significant difficulty breathing. She had in given epinephrine urgent care, and they do suspect that this was contributing toward her worsening symptoms as well. As the patient was able to sit and relax in the emergency department, her symptoms significantly improved. She was given another 125 mg Solu-Medrol through the IV. Her wheezing did improve while they, however I suspect a worsening flareup of her asthma, and feels that it has not been properly manage, she has not been to see her PCP recently. I discussed proper asthma management with the patient, and 80 feel that she would benefit from inhaled corticosteroids and Singulair. These were sent for the patient and caseworkers were informed of the situation and did schedule the patient with an appointment with a PCP locally. The patient is encouraged to follow-up outpatient. Differential Diagnosis: Asthma exacerbation, pneumonia, acute bronchitis, PE, malignancy, COPD, CHF, and others. Medication Reconcilliation Current Medication List: was personally reviewed by me Blood Pressure Screening Patient's blood pressure: Normal blood pressure Impression Primary Impression: Acute bronchitis Additional Impression: Asthma with exacerbation Departure Information Dispostion Home / Self-Care Condition GOOD Prescriptions Montelukast Sodium (SINGULAIR) 10 Mg Tab 10 MG PO QD for 30 Days, #30 TAB Prov: Shereen Crawford PA-C 01/22/17 Fluticasone Prop/Salmeterol (Advair Diskus 500/50 60 Dose) 1 Ea Aerp 1 PUFF INH BID for 1 Day, #1 INHALER Prov: Shereen Crawford PA-C 01/22/17 Referrals No Doctor, Assigned (PCP) Patient Instructions ED Bronchitis Asthmatic, My [facility] Additional Instructions You were seen in the emergency department stay for difficulty breathing and wheezing. As discussed, I do suspect an asthmatic bronchitis. Also as discussed, you have been overusing your albuterol, and I do suspect that this is worsening your symptoms. You have been prescribed Singulair. This is to be used for asthma maintenance. Please take this medication as directed. You were also prescribed an Advair inhaler. This is to be used twice daily and is again for asthma maintenance. This medication does have an inhaled corticosteroid, and the dosage may need to be adjusted at some point. This is why it is very important for you to follow up with your PCP regarding chronic asthma maintenance. Please finish steroids and antibiotics as were previously prescribed to you. Our case coordinator did schedule you an appointment with a primary care provider for this week to follow up regarding your chronic asthma. Please keep this appointment and be sure to follow up as directed. Please do not overuse your albuterol inhaler. This is to be used 1-2 puffs every 4-6 hours only. I do recommend while you're sick that you take 1 puff every 4 hours consistently for the next 2-3 days. Do not overuse it. As discussed, I do suspect an anxiety component to your symptoms. Please discuss this with your PCP and consider long-term management for anxiety. Her potassium was low in the emergency department. Please consider the potassium supplement or eat bananas or other high potassium foods as a part of your regular diet. Your blood glucose was also elevated. I do feel that this deserves follow-up outpatient. Please follow up in the emergency department if you experience being chest pain , dyspnea, fever, chills, nausea, vomiting, or other concerning symptoms. Problem Qualifiers Primary Impression: Acute bronchitis Bronchitis organism: unspecified organism Qualified Codes: J20.9 - Acute bronchitis, unspecified Additional Impression: Asthma with exacerbation Asthma severity: moderate Asthma persistence: persistent Qualified Codes: J45.41 - Moderate persistent asthma with (acute) exacerbation
[2017-01-22 14:15] LABS: BASO % 0.2 %; BASO ABS # 0.05 K/uL (0-0.2); COMPLETE YES; EOS % 0.5 %; IG% 0.9 %; LYMPH % 24.8 %; LYMPH ABS # 5.24 K/uL (1.2-3.4); MONO % 3.4 %; NEUT % 70.2 %; TOXIC GRANULATION 1+; VACUOLIZATION 1+
[2017-01-22 14:41] VITALS: BP 118/89; PULSE 84; O2SAT 96
== END 2017-01-22 14:55 | disposition home or self-care (01) ==
LOC: EDBD 11:32 → C.EDC 11:34
DX: J20.9 Acute bronchitis, unspecified (principal); J45.41 Moderate persistent asthma with (acute) exacerbation; Z79.899 Other long term (current) drug therapy; F17.200 Nicotine dependence, unspecified, uncomplicated

== ENCOUNTER → 2017-03-27 | Outpatient (CLI) | payer OTHER ==
[~2017-03-27] MED LIST changes: -DOXY100C76 PO; -OXYC-57 PO; +PRED10TA PO
[2017-03-27 09:27] LABS: BASO % 0.2 %; BASO ABS # 0.02 K/uL (0-0.2); EOS % 1.5 %; EOS ABS # 0.17 K/uL (0-0.5); HEMATOCRIT 43.1 % (37-47); HEMOGLOBIN 14.4 g/dL (12.0-16.0); IG# 0.03 K/uL (0.00-0.02); LYMPH % 22.2 %; LYMPH ABS # 2.44 K/uL (1.2-3.4); MEAN CELL VOLUME 87.2 fL (80-100); MEAN CORPUSCULAR HEMOGLOBIN 29.1 pg (25-34); MEAN CORPUSCULAR HGB CONC 33.4 g/dl (32-36); MEAN PLATELET VOLUME 10.2 fL (7.4-10.4); MONO ABS # 0.55 K/uL (0.11-0.59); NEUT % 70.8 %; NEUT ABS # 7.78 K/uL (1.4-6.5); PLATELET COUNT 221 K/uL (130-400); RED CELL DISTRIBUTION WIDTH CV 13.3 % (11.5-14.5); RED CELL DISTRIBUTION WIDTH SD 42.3 fL (36.4-46.3); WHITE BLOOD COUNT 10.99 K/uL (4.8-10.8)
[2017-03-27 09:49] LABS: HEMOGLOBIN A1C 5.7 % (4.5-5.6)
[2017-03-27 09:52] LABS: ALBUMIN 3.4 gm/dl (3.4-5.0); ALT/SGPT 35 U/L (12-78); BLOOD UREA NITROGEN 15 mg/dl (7-18); CALCIUM 8.8 mg/dl (8.5-10.1); CARBON DIOXIDE 27 mmol/L (21-32); CHOLESTEROL 174 mg/dl (0-200); CREATININE 0.66 mg/dl (0.60-1.20); GLUCOSE 92 mg/dl (70-99); POTASSIUM 4.1 mmol/L (3.5-5.1); SODIUM 138 mmol/L (136-145)
[2017-03-27 10:03] LABS: ALKALINE PHOSPHATASE 92 U/L (45-117); AST/SGOT 24 U/L (15-37); LDL CHOLESTEROL CALCULATED 106 mg/dl; TOTAL PROTEIN 7.4 gm/dl (6.4-8.2)
== END | disposition home or self-care (01) ==
LOC: C.LAB 08:22
PROVIDERS: ATTEND Neuromusculoskeletal Medicine & OMM
DX: Z00.00 Encounter for general adult medical examination without abnormal findings (principal); E66.01 Morbid (severe) obesity due to excess calories; R73.09 Other abnormal glucose